=== PATIENT | male | born 1960 | race Two or more races ===

== ENCOUNTER 2018-05-04 09:50 | Inpatient (IN) | payer MEDICARE, MEDICAID ==
[~2018-05-04] VITALS: Ht 157.5 cm; Wt 65.7 kg
[~2018-05-04 09:50] MED LIST: AMLO10TA12 PO; ATOR1TAB PO; GAB400C PO; GEMF600T7 PO; LIS10T PO; TRAM-297 PO; TRAZ100T2 PO; [UNRECOGNIZED DRUG - CODE] PO
[2018-05-04 10:39] LABS: Basophils # (auto) 0.1 uL; Basophils % (auto) 1.1 % (0.0-2.0); Eosinophils # (auto) 0.1 uL; Eosinophils % (auto) 2.1 % (0.0-7.0); Hematocrit 40.1 % (41.0-53.0); Hemoglobin 13.8 g/dL (13.5-17.5); Lymphocytes # (auto) 1.5 uL; Lymphocytes % (auto) 26.6 % (10.0-50.0); Mean Corpuscular Hemoglobin 31.5 pg (28.0-32.0); Mean Corpuscular Hgb Conc. 34.4 g/dL (32.0-36.0); Mean Corpuscular Volume 91.6 fL (80.0-100.0); Monocytes # (auto) 0.2 uL; Monocytes % (auto) 4.1 % (0.0-12.0); Neutrophils # (auto) 3.6 uL; Neutrophils % (auto) 66.1 % (37.0-80.0); Nucleated Red Blood Cells % 0.1 %; Platelet Count (auto) 228 10^3/uL (140-450); Red Blood Cells 4.38 10^6/uL (4.5-5.90); Red Cell Distribution Width 12.5 % (11.8-14.3); White Blood Cell 5.5 10^3/uL (4.4-10.8)
[2018-05-04 10:53] LABS: Albumin 3.5 g/dL (3.4-5.0); Anion Gap 11 (5-15); Blood Urea Nitrogen 43 mg/dL (7-18); Calcium 8.7 mg/dL (8.5-10.1); Carbon Dioxide 27 mmol/L (21-32); Chloride 80 mmol/L (98-107); Potassium 3.1 mmol/L (3.5-5.1)
[2018-05-04 11:01] LABS: Alanine Aminotransferase 25 U/L (16-61); Alkaline Phosphatase 237 U/L (45-117); Aspartate Aminotransferase 10 U/L (15-37); BUN/Creatinine Ratio 10.7; Bilirubin, Total 0.6 mg/dL (0.2-1.0); GFR African American 20 mL/min; GFR Non-African American 16 mL/min; Total Protein 8.2 g/dL (6.4-8.2)
[2018-05-04 11:05] LABS: Sodium 118 mmol/L (136-145)
[2018-05-04 11:06] LABS: Glucose 876 mg/dL (74-106)
[2018-05-04 11:07] LABS: Urine WBC None Seen /hpf (0 - 3)
[2018-05-04 11:12] LABS: Urine Bacteria NONE SEEN /hpf (None Seen); Urine Blood TRACE /uL (Negative); Urine Specific Gravity 1.016 (1.001-1.035)
[2018-05-04] MEDS ORDERED: POTASSIUM EFFERVESENT TAB 25 MEQ PO ONE (12:00)
[2018-05-04] MEDS: POTASSIUM CHL 20MEQ/100ML 100 ML IV SCH ×2 (12:35→15:41)
[2018-05-04] MEDS ORDERED: LABETALOL HCL 5 MG/ML 4ML SYRINGE IV ONE (13:38)
[2018-05-04] MEDS ORDERED: TETANUS-DIPTH-ACEL PERTUSSIS 0.5ML SYRG IM ONE (13:45)
[2018-05-04] MEDS ORDERED: LABETALOL HCL 5 MG/ML ML 20ML VIAL IV ONE (13:45)
[2018-05-04] MEDS ORDERED: TEMAZEPAM 15 MG CAP PO PRN (14:30)
[2018-05-04] MEDS ORDERED: ACETAMINOPHEN 500 MG TAB PO PRN (14:30)
[2018-05-04] MEDS ORDERED: LORazepam 0.5 MG TAB PO PRN (14:30)
[2018-05-04] MEDS ORDERED: PROMETHAZINE HCL 25 MG/ML 1ML IV PRN (14:30)
[2018-05-04] MEDS ORDERED: traMADol HCL 50 MG TAB PO PRN (14:30)
[2018-05-04] MEDS ORDERED: DEXTROSE (50%) 50ML SYRG IV PRN (14:30)
[2018-05-04] MEDS ORDERED: NITROGLYCERIN 0.4 MG SL TAB SL PRN (14:30)
[2018-05-04] MEDS ORDERED: MORPHINE SULFATE 4 MG/ML SYR/VIAL IV PRN (14:30)
[2018-05-04 14:41] LABS: Amylase 91 U/L (25-115); Lipase 976 U/L (73-393)
[2018-05-04] MEDS ORDERED: InsuLIN REG 1unit/0.01ml Soln (100units/ml) IV ONE (14:45)
[2018-05-04 14:55] LABS: Alcohol, Urine < 3.0 mg/dL (0-5); Amphetamine Screen, Urine NEGATIVE (NEGATIVE); Barbiturate Scree,Urine NEGATIVE (NEGATIVE); Benzodiazephine Screen, Urine NEGATIVE (NEGATIVE); Cannabinoid Screen, Urine POSITIVE (NEGATIVE); Cocaine Screen, Urine NEGATIVE (NEGATIVE); Opiate Scree,Urine NEGATIVE (NEGATIVE); Phencyclidine Screen, Urine NEGATIVE (NEGATIVE)
[2018-05-04] MEDS: SODIUM CHLORIDE 0.9% 1,000 ML IV SCH ×2 (15:21→23:05)
[2018-05-04] MEDS: ACCU-CHEK COMFORT CURVE STRIP VI SCH ×2 (17:07→20:39)
[2018-05-04] MEDS: InsuLIN REG 1unit/0.01ml Soln (100units/ml) SC SCH ×2 (17:16→20:39)
[2018-05-04] MEDS ORDERED: cloNIDine HCL 0.1 MG TAB PO ONE (22:45)
[2018-05-04 23:35] VITALS: BP 162/87
[2018-05-05] MEDS: ACCU-CHEK COMFORT CURVE STRIP VI SCH ×4 (00:19→12:00)
[2018-05-05] MEDS: InsuLIN REG 1unit/0.01ml Soln (100units/ml) SC SCH ×4 (00:20→12:00)
[2018-05-05] MEDS: SODIUM CHLORIDE 0.9% 1,000 ML IV SCH (06:00)
[2018-05-05 06:01] VITALS: BP 149/84
[2018-05-05 06:19] LABS: Alanine Aminotransferase 18 U/L (16-61); Albumin 2.6 g/dL (3.4-5.0); Anion Gap 9 (5-15); Aspartate Aminotransferase 12 U/L (15-37); Blood Urea Nitrogen 34 mg/dL (7-18); Calcium 8.1 mg/dL (8.5-10.1); Carbon Dioxide 22 mmol/L (21-32); Chloride 108 mmol/L (98-107); Glucose 158 mg/dL (74-106); Potassium 3.1 mmol/L (3.5-5.1); Sodium 139 mmol/L (136-145)
[2018-05-05 06:23] LABS: Alkaline Phosphatase 123 U/L (45-117); BUN/Creatinine Ratio 11.5; Bilirubin, Total 0.3 mg/dL (0.2-1.0); Cholesterol 250 mg/dL (< 200); GFR African American 28 mL/min; GFR Non-African American 23 mL/min; HDL Cholesterol 39 mg/dL (40-59); Triglycerides 614 mg/dL (< 150)
[2018-05-05 09:00] VITALS: BP 160/96
[2018-05-05] MEDS ORDERED: PANTOPRAZOLE 40 MG TAB PO SCH (10:00)
[2018-05-05] MEDS ORDERED: amLODIPine BESYLATE 5 MG TAB PO ONE (11:45)
[2018-05-05] MEDS ORDERED: LISINOPRIL 20 MG TAB PO ONE (11:45)
[2018-05-05 13:00] VITALS: BP 165/98
[2018-05-05] MEDS ORDERED: ATORVASTATIN 20 MG TAB PO SCH (22:00)
[2018-05-05] MEDS ORDERED: GEMFIBROZIL 600 MG TAB PO SCH (22:00)
[2018-05-05] MEDS ORDERED: traZODone HCL 50 MG TAB PO SCH (22:00)
[2018-05-05] MEDS ORDERED: GABAPENTIN 400 MG CAP PO SCH (22:00)
[2018-05-06] MEDS ORDERED: amLODIPine BESYLATE 5 MG TAB PO SCH (10:00)
[2018-05-06] MEDS ORDERED: LISINOPRIL 10 MG TAB PO SCH (10:00)
== END 2018-05-05 15:30 | disposition home or self-care (01) | DRG 683 ==
LOC: ER 09:52 → TELE 14:18 → TELE-WESTW 18:15
PROVIDERS: ADMIT Internal Medicine; ATTEND Internal Medicine
DX: N17.9 Acute kidney failure, unspecified (principal); I12.0 Hypertensive chronic kidney disease with stage 5 chronic kidney disease or end stage renal disease; E87.1 Hypo-osmolality and hyponatremia; E11.65 Type 2 diabetes mellitus with hyperglycemia; N18.5 Chronic kidney disease, stage 5; E11.21 Type 2 diabetes mellitus with diabetic nephropathy; M19.90 Unspecified osteoarthritis, unspecified site; E78.5 Hyperlipidemia, unspecified; E03.9 Hypothyroidism, unspecified; E11.22 Type 2 diabetes mellitus with diabetic chronic kidney disease; E11.319 Type 2 diabetes mellitus with unspecified diabetic retinopathy without macular edema; E11.40 Type 2 diabetes mellitus with diabetic neuropathy, unspecified; E87.6 Hypokalemia; G47.00 Insomnia, unspecified; S01.312A Laceration without foreign body of left ear, initial encounter; W19.XXXA Unspecified fall, initial encounter; Y92.009 Unspecified place in unspecified non-institutional (private) residence as the place of occurrence of the external cause; Z83.3 Family history of diabetes mellitus; Z90.5 Acquired absence of kidney; Z91.81 History of falling; Z97.0 Presence of artificial eye; Z79.899 Other long term (current) drug therapy
CPT/HCPCS: 36415; 70450; 71046; 80053; 80061; 80307; 81001; 82150; 82962; 83036; 83690; 84443; 84484; 85025; 90471; 90715; 93005; 94761; 96361; 96374; 96375; G0378; J1815; J3480; J3490